=== PATIENT | male | born 1980 | race African-American/Black ===

== ENCOUNTER 2016-10-27 01:34 | Emergency (ER) | payer MEDICAID ==
[~2016-10-27] VITALS: Ht 175.3 cm; Wt 86.3 kg
[2016-10-27] MEDS ORDERED: SODIUM CHLORIDE 0.9% 1,000 ML IV ONE (02:56)
[2016-10-27] MEDS ORDERED: CLINDAMYCIN 600 MG in DEXTROSE 5% WATER 50 ML IV ONE (03:00)
[2016-10-27] MEDS ORDERED: DEXAMETHASONE 10MG/ML 1ML VIAL IV ONE (03:00)
[2016-10-27 05:35] VITALS: BP 167/92
== END 2016-10-27 05:40 | disposition home or self-care (01) ==
LOC: ER 01:48
DX: J36 Peritonsillar abscess (principal); F17.210 Nicotine dependence, cigarettes, uncomplicated
CPT/HCPCS: 96365; 96375; 99284; J1100; J3490; Z7610; J7030; J7060